=== PATIENT | female | born 1980 | race Caucasian/White ===

== ENCOUNTER 2017-07-24 14:46 | Emergency (ER) | payer OTHER ==
[~2017-07-24] VITALS: Ht 162.6 cm; Wt 61.4 kg
[2017-07-24 14:58] VITALS: BP 161/80; PULSE 72; RESP 18; TEMP 98.6; O2SAT 99
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
[2017-07-24] MEDS ORDERED: ACETAMINOPHEN/HYDROcodone 325 MG/7.5 MG TAB PO ONE (17:00)
[2017-07-24] MEDS ORDERED: ORPHENADRINE INJ 60 MG/2 ML AMP IM ONE (17:00)
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
[2017-07-24 18:11] LABS: BACTERIA, URINE MOD /hpf; BILIRUBIN, URINE NEG (NEG); BLOOD, URINE NEG (NEG); GLUCOSE,URINE NEG (NEG); KETONE, URINE NEG (NEG); NITRITE,URINE NEG (NEG); SQUAMOUS EPITHELIAL CELL URINE 27 /hpf (0-5); TRANSITIONAL EPI CELLS, URINE 1 /hpf; URINE COLOR LIGHT-YELLOW (YELLW/STRAW); URINE LEUKOCYTE ESTERASE MOD (NEG)
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
[2017-07-24] MEDS ORDERED: CEPH-460 PO (18:50)
[2017-07-24] MEDS ORDERED: IBUP-232 PO (18:50)
[2017-07-24] MEDS ORDERED: TRAM50TA PO (18:50)
[2017-07-24] MEDS ORDERED: CYCL10TA PO (18:50)
== END 2017-07-24 19:50 | disposition home or self-care (01) ==
LOC: NEPD 14:46
DX: S16.1XXA Strain of muscle, fascia and tendon at neck level, initial encounter (principal); S29.019A Strain of muscle and tendon of unspecified wall of thorax, initial encounter; S50.811A Abrasion of right forearm, initial encounter; N30.00 Acute cystitis without hematuria; V43.52XA Car driver injured in collision with other type car in traffic accident, initial encounter; Z72.0 Tobacco use
CPT/HCPCS: 71046; 71101; 72072; 72125; 73030; 81001; 84703; 87086; 96372; 99285; J2360; L0150